=== PATIENT | male | born 1940 | race Hispanic/Latino ===

== ENCOUNTER 2019-01-29 14:03 | Emergency (ER) | payer MEDICARE, OTHER ==
[~2019-01-29] VITALS: Ht 170.2 cm; Wt 79.8 kg
[~2019-01-29 14:03] MED LIST: AMLODIPINE BESYL5 MG PO; AVODART0.5 MG PO; CALCIUM600 MG PO; DEXILANT60 MG PO; DIOVAN80 MG PO; FENOFIBRATE160 MG PO; FISH OIL 1,0001 EAC2 PO; NAPROXEN500 MG PO; SERTRALINE HCL100 MG PO
--- OUTSIDE RECORDS SUMMARY | 2019-01-29 14:05 | XMS REPORT | Summary of Care ---
Author Author [facility] Organization [facility] Address Unknown Phone Unavailable Encounter [facility] En[facility]tr_aliseven(FIN) [id number] Date(s): 05/15/17 - 05/15/17 [facility] [address] [place] [address]- Discharge Disposition: Home or Self Care Attending Physician: Frances Castellon DO Admitting Physician: Frances Castellon DO Vital Signs No data available for this section Problem List No data available for this section Allergies, Adverse Reactions, Alerts No data available for this section Medications No data available for this section Results No data available for this section Immunizations No data available for this section Procedures No data available for this section Social History No data available for this section Assessment and Plan No data available for this section
--- OUTSIDE RECORDS SUMMARY | 2019-01-29 14:05 | XMS REPORT | Summary of Care ---
Author Organization Unknown Address Unknown Phone Unavailable Encounter [facility]) [id number] Date(s): 10/16/14 - 10/16/14 [facility] Outpatient Imaging - [address] [address]- [place] Discharge Disposition: Home Physician Attending: Ronald Barnett MD Reason for Visit 338.0 - CENTRAL PAIN SY Problem List No data available for this section Allergies, Adverse Reactions, Alerts No data available for this section Medications No data available for this section Medications Administered During Your Visit No data available for this section Immunizations No data available for this section
--- OUTSIDE RECORDS SUMMARY | 2019-01-29 14:05 | XMS REPORT | Continuity of Care Document ---
Author Author [facility] Interface Address Unknown Phone Unavailable Problems Problem Status Onset Date Classification Date Reported Comments Source M79.1 Active 05/15/2017 [facility] MYALGIA Active [facility] PAIN IN RIGHT KNEE Active [facility] Medications Medication Details Route Status Patient Instructions Ordering Provider Order Date Source Allergies, Adverse Reactions, Alerts Substance Category Reaction Severity Reaction type Status Date Reported Comments Source Immunizations Immunization Date Given Site Status Last Updated Comments Source Results Order Name Results Value Reference Range Date Interpretation Comments Source Knee 3 Views Bilateral DX Knee 3 Views Bilateral DX BILATERAL KNEES, 3 VIEWS HISTORY: Patient reports bilateral knee pain for approximately 3 years; - M79.1 Myalgia; COMPARISON: Left knee MRI dated October 16, 2014 LEFT KNEE: Mild medial compartment degenerative joint space narrowing with mild subchondral sclerosis and cystic change. Mild degenerative spurring of the tibial spines and patella. No fracture, osseous malalignment, or aggressive osseous lesion. No joint effusion. RIGHT KNEE: Medial compartment joint space is grossly preserved but there is mild degenerative subchondral cystic change and sclerosis in the medial femoral condyle. Trace osteophytosis of the tibial spines and patella. Small quadriceps and patellar tendon enthesophytes of the patella. No fracture, osseous malalignment, or aggressive osseous lesion. No significant joint effusion. SL: [id number] 05/15/2017 - - Read by: Joseph Little MD Dictated Date/time: 05/16/17 09:44 Electronically Signed by: Joseph Little MD 05/16/17 09:49 FINAL REPORT [facility] Vital Signs Vital Sign Value Date Comments Source Encounters Location Location Details Encounter Type Encounter Number Reason For Visit Attending Provider ADM Date DC Date Status Source [facility] [id number] Ronald Barnett 10/16/2014 10/17/2014 [facility] [id number] Frances Odenenberg 05/15/2017 05/16/2017 [facility] Procedures Procedure Code Date Perfomer Comments Source
[2019-01-29] MEDS ORDERED: TRAMADOL HCL 50 MG TAB PO ONE (14:30)
--- NOTE | 2019-01-29 15:24 | Diagnostic Imaging Report ---
History: Comparison studies:None Technique: Axial images were obtained from the skull base to the vertex. Coronal and sagittal images reconstructed from the axial data. Intravenous contrast: None Dose modulation, iterative reconstruction, and/or weight based adjustment of the mA/kV was utilized to reduce the radiation dose to as low as reasonably achievable. Findings: Scalp/skull: No abnormalities. Extra-axial spaces: No masses. No fluid collections. Brain sulci: Age-appropriate. Ventricles: Age-appropriate. No hydrocephalus. Parenchyma: No abnormal densities. No masses, hemorrhage, acute or chronic cortical vascular insults. Sellar/suprasellar region: No abnormalities. Craniocervical junction: Patent foramen magnum. No Chiari one malformation. Incidental findings: Atherosclerotic calcifications in the carotid siphons . Impression: No acute abnormality Signed by: DR Yoav Bernal M.D. on 01/29/2019 3:21 PM
== END 2019-01-29 16:10 | disposition home or self-care (01) ==
LOC: ER 14:03
DX: S01.01XA Laceration without foreign body of scalp, initial encounter (principal); W22.8XXA Striking against or struck by other objects, initial encounter; Y92.008 Other place in unspecified non-institutional (private) residence as the place of occurrence of the external cause; I10 Essential (primary) hypertension; K21.9 Gastro-esophageal reflux disease without esophagitis
CPT/HCPCS: 70450; 99284

== ENCOUNTER 2020-06-12 07:46 | Emergency (ER) | payer MEDICARE, OTHER ==
[~2020-06-12] VITALS: Ht 165.1 cm; Wt 68.0 kg
[2020-06-12] MEDS ORDERED: ACETAMINOPHEN 325 MG TAB PO ONE (08:00)
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
--- NOTE | 2020-06-12 08:39 | Diagnostic Imaging Report ---
History:Headaches Comparison studies: Head CT on 01/29/2019 Technique: Axial images were obtained from the skull base to the vertex. Coronal and sagittal images reconstructed from the axial data. Dose modulation, iterative reconstruction, and/or weight based adjustment of the mA/kV was utilized to reduce the radiation dose to as low as reasonably achievable. Intravenous contrast: None Findings: Scalp/skull: No abnormalities. Extra-axial spaces: No masses. No fluid collections. Brain sulci: Appropriate for age Ventricles: Normal in size and configuration. No hydrocephalus. Parenchyma: Subtle hypodensities in the supratentorial white matter are small vessel ischemic changes. No masses, hemorrhage, acute or chronic cortical vascular insults. Sellar/suprasellar region: No abnormalities. Craniocervical junction: Patent foramen magnum. No Chiari one malformation. Incidental findings: Subtle calcifications in the carotid siphons . Impression: 1. No abnormalities. 2. No changes when compared to the head CT on 01/29/2019 Signed by: Dr. Jose Funk M.D. on 06/12/2020 8:36 AM
== END 2020-06-12 09:14 | disposition home or self-care (01) ==
LOC: ER 08:02
DX: S00.83XA Contusion of other part of head, initial encounter (principal); R51 Headache; W18.09XA Striking against other object with subsequent fall, initial encounter; Y93.55 Activity, bike riding; Y92.488 Other paved roadways as the place of occurrence of the external cause; I10 Essential (primary) hypertension; E78.5 Hyperlipidemia, unspecified; K21.9 Gastro-esophageal reflux disease without esophagitis
CPT/HCPCS: 70450; 99283

== ENCOUNTER 2022-07-22 05:36 | Emergency (ER) | payer MEDICARE, OTHER ==
[~2022-07-22] VITALS: Ht 165.1 cm; Wt 68.0 kg
[2022-07-22] MEDS ORDERED: KETOROLAC TROMETHAMINE 60 MG/2 ML VIAL IM ONE (06:15)
[2022-07-22] MEDS ORDERED: VALIUM2 MG PO (06:18)
[2022-07-22] MEDS ORDERED: KETOROLAC TROMETHAMINE 30 MG/ML VIAL ONE (06:28)
== END 2022-07-22 06:30 | disposition home or self-care (01) ==
LOC: ER 05:41
DX: M54.2 Cervicalgia (principal); M62.838 Other muscle spasm; I10 Essential (primary) hypertension; E78.5 Hyperlipidemia, unspecified; K21.9 Gastro-esophageal reflux disease without esophagitis
CPT/HCPCS: 99282; J1885

== ENCOUNTER → 2022-11-19 | Day surgery (SDC) | payer MEDICARE, OTHER ==
[2022-11-16 08:26] LABS: BASOPHILS # (AUTO) 0.1 (0.0-0.1); BASOPHILS % 0.9 % (0.0-1.0); EOSINOPHILS # (AUTO) 0.3 (0.0-0.4); HEMATOCRIT 42.8 % (38.2-49.6); HEMOGLOBIN 14.5 g/dL (14.0-18.0); LYMPHOCYTES # (AUTO) 1.9 (1.0-3.2); LYMPHOCYTES % 35.2 % (18.0-39.1); MEAN CORPUSCULAR HEMOGLOBIN 30.9 pg (28-32); MEAN CORPUSCULAR HGB CONC 33.9 g/dL (31-35); MEAN CORPUSCULAR VOLUME 91.3 fL (81-99); MONOCYTES # (AUTO) 0.7 (0.2-0.8); MONOCYTES % 12.9 % (4.4-11.3); NEUTROPHILS # (AUTO) 2.5 (2.1-6.9); NEUTROPHILS % 44.5 % (38.7-80.0); PLATELET COUNT 193 x10e3/uL (140-360); RED BLOOD COUNT 4.69 x10e6/uL (4.3-5.7); RED CELL DISTRIBUTION WIDTH 13.4 % (11.7-14.4)
[2022-11-16 08:40] LABS: INR 0.92; PROTHROMBIN TIME 12.6 seconds (11.9-14.5)
[2022-11-16 08:41] LABS: PARTIAL THROMBOPLASTIN TIME 32.6 seconds (23.8-35.5)
[2022-11-16 08:48] LABS: ALBUMIN 3.7 g/dL (3.5-5.0); ALBUMIN/GLOBULIN RATIO 1.1 (0.8-2.0); ANION GAP 12.8 mmol/L (8-16); CALCIUM 9.4 mg/dL (8.4-10.2); CHOL/HDL RATIO 4.7 (3.9-4.7); CREATININE, SERUM 0.82 mg/dL (0.72-1.25); POTASSIUM 3.8 mmol/L (3.5-5.1)
[2022-11-19] VITALS (13 sets, daily range): BP systolic 147–175; BP diastolic 61–72
[~2022-11-19] MED LIST changes: +ASPIRIN 325 MG TAB ONE; +FENTANYL CITRATE/PF 100MCG/2 ML INJ ONE; +HEPARIN SOD (PORCINE) 1000 UNIT/ML 30ML ONE; +HEPARIN SOD/SOD CHLORIDE 2,000 ML ONE; +IOPAMIDOL 370 MG/ML 100 ML INFUS..BTL INJ ONE; +LIDOCAINE HCL 2% LOCAL 20 ML VIAL ONE; +MIDAZOLAM HCL 2 MG/2 ML VIAL ONE; +NITROGLYCERIN/D5W 200 MCG/ML 250 ML ONE; +SODIUM CHLORIDE 0.9% 1000ML 1,000 ML ONE; +VALIUM2 MG PO; +VERAPAMIL HCL 2.5 MG/ML 2 ML VIAL ONE
== END | disposition home or self-care (01) ==
LOC: CATH LAB 06:32
PROVIDERS: ATTEND Internal Medicine Cardiovascular Disease
DX: I25.118 Atherosclerotic heart disease of native coronary artery with other forms of angina pectoris (principal); R94.31 Abnormal electrocardiogram [ECG] [EKG]; R00.2 Palpitations; I10 Essential (primary) hypertension; E78.5 Hyperlipidemia, unspecified; I87.2 Venous insufficiency (chronic) (peripheral); I47.20 Ventricular tachycardia, unspecified; Z01.810 Encounter for preprocedural cardiovascular examination; Z01.812 Encounter for preprocedural laboratory examination; Z79.899 Other long term (current) drug therapy
CPT/HCPCS: 36415; 80053; 80061; 83036; 85025; 85610; 85730; 93005; 93458; C1769; C1887; J1644; J2001; J2250; J3010; J7030; Q9967; 99152; 99153

== ENCOUNTER 2023-01-21 07:15 | Observation (INO) | payer MEDICARE, OTHER ==
[2023-01-18 08:57] LABS: BASOPHILS % 0.7 % (0.0-1.0); EOSINOPHILS # (AUTO) 0.3 (0.0-0.4); EOSINOPHILS % 5.5 % (0.0-6.0); HEMATOCRIT 41.5 % (38.2-49.6); HEMOGLOBIN 14.3 g/dL (14.0-18.0); LYMPHOCYTES # (AUTO) 2.2 (1.0-3.2); LYMPHOCYTES % 39.3 % (18.0-39.1); MEAN CORPUSCULAR HEMOGLOBIN 31.2 pg (28-32); MEAN CORPUSCULAR HGB CONC 34.5 g/dL (31-35); MEAN CORPUSCULAR VOLUME 90.4 fL (81-99); MONOCYTES # (AUTO) 0.6 (0.2-0.8); MONOCYTES % 10.8 % (4.4-11.3); NEUTROPHILS # (AUTO) 2.4 (2.1-6.9); NEUTROPHILS % 43.2 % (38.7-80.0); PLATELET COUNT 191 x10e3/uL (140-360); RED BLOOD COUNT 4.59 x10e6/uL (4.3-5.7); RED CELL DISTRIBUTION WIDTH 13.2 % (11.7-14.4)
[~2023-01-21] VITALS: Ht 170.2 cm; Wt 77.1 kg
[~2023-01-21 07:15] MED LIST changes: -ASPIRIN 325 MG TAB ONE; +ATORVASTATIN CA20 MG PO; +CEFAZOLIN SODIUM 2 GM ONE; +CELECOXIB 200 MG CAP ONE; +DEXAMETHASONE SOD PHOS 10 MG/1 ML VIAL ONE; -FENTANYL CITRATE/PF 100MCG/2 ML INJ ONE; +GABAPENTIN 300 MG CAP ONE; -HEPARIN SOD (PORCINE) 1000 UNIT/ML 30ML ONE; -HEPARIN SOD/SOD CHLORIDE 2,000 ML ONE; +HYDROCHLOROTHIA25 MG PO; -IOPAMIDOL 370 MG/ML 100 ML INFUS..BTL INJ ONE; +LACTATED RINGER'S 1,000 ML ONE; -LIDOCAINE HCL 2% LOCAL 20 ML VIAL ONE; +LISINOPRIL10 MG PO; -MIDAZOLAM HCL 2 MG/2 ML VIAL ONE; -NITROGLYCERIN/D5W 200 MCG/ML 250 ML ONE; +PROTONIX20 MG PO; +SODIUM CHLORIDE 0.9% 100 ML ONE; -SODIUM CHLORIDE 0.9% 1000ML 1,000 ML ONE; +SODIUM CHLORIDE 0.9% 500ML 500 ML ONE; +TRANEXAMIC ACID 20 ML ONE; -VERAPAMIL HCL 2.5 MG/ML 2 ML VIAL ONE; +VITAL JOINT; +VITAMIN D31 GM; +Vancomycin IV 1,000 MG ONE
[2023-01-21] MEDS ORDERED: ROPIVACAINE 246.25 MG, EPINEPHRINE HCL 1:1000 1ML 0.5 MG, CLONIDINE HCL 0.08 MG, KETORO... INJ ONE ×5 (08:00)
[2023-01-21] MEDS ORDERED: DOCUSATE SODIUM 100 MG CAP PO PRN (08:30)
[2023-01-21] MEDS ORDERED: ACETAMINOPHEN 650 MG SUPP PR PRN (08:30)
[2023-01-21] MEDS ORDERED: ONDANSETRON HCL INJ 2MG/ML 2ML 2 MG/ML VIAL IV PRN (08:30)
[2023-01-21] MEDS ORDERED: HYDROCODONE/APAP 7.5MG-325MG 1 EA TAB PO PRN (08:30)
[2023-01-21] MEDS ORDERED: HYDROCODONE/APAP 5MG-325MG TAB PO PRN (08:30)
[2023-01-21] MEDS ORDERED: ZOLPIDEM TARTRATE 5 MG TAB PO PRN (08:30)
[2023-01-21] MEDS ORDERED: DIPHENHYDRAMINE HCL INJ 50 MG/ML VIAL IV PRN (08:30)
[2023-01-21 09:50] VITALS: BP 152/72
[2023-01-21 10:00] VITALS: BP 152/72
[2023-01-21] MEDS ORDERED: SODIUM CHLORIDE 0.9% 1000ML 1,000 ML IV SCH (11:00)
[2023-01-21] MEDS ORDERED: ASPIRIN 325 MG TAB PO SCH (11:00)
[2023-01-21 12:09] VITALS: BP_SYST 117; BP_SYST 148; BP_DIAS 61; BP_DIAS 76
[2023-01-21] MEDS ORDERED: FENTANYL CITRATE/PF 100MCG/2 ML INJ ONE (12:13)
[2023-01-21] MEDS ORDERED: LIDOCAINE HCL 2% LOCAL INJ 5 ML SDV VIAL INJ ONE (12:45)
[2023-01-21] MEDS ORDERED: POVIDONE IODINE 0.05% 0.05 % ML PO ONE (12:45)
[2023-01-21] MEDS ORDERED: ONDANSETRON HCL INJ 2MG/ML 2ML 2 MG/ML VIAL ONE (12:45)
[2023-01-21] MEDS ORDERED: PROPOFOL IV EMULSION 10 MG/ML 20 ML VIAL ONE (12:45)
[2023-01-21] MEDS ORDERED: GLYCOPYRROLATE INJ 0.2 MG/ML VIAL ONE (12:45)
[2023-01-21] MEDS ORDERED: VITAMIN D31 GM PO (13:31)
[2023-01-21] MEDS ORDERED: CELECOXIB 200 MG CAP PO SCH (17:00)
[2023-01-22] MEDS ORDERED: ACETAMINOPHEN 1000 MG/100 ML IV PRN (08:30)
== END 2023-01-21 15:14 | disposition home or self-care (01) ==
LOC: OR 07:15 → PACU V 08:25 → MED/SURG 09:50
PROVIDERS: ADMIT Specialist; ATTEND Specialist
DX: M17.12 Unilateral primary osteoarthritis, left knee (principal); I10 Essential (primary) hypertension
CPT/HCPCS: 0223U; 27447; 36415; 71046; 73560; 85025; 86850; 86900; 86920; 94799; 97110; 97116; 97161; C1713 ×2; C1776 ×3; G0378; J0171; J1100; J1885; J2001; J2405; J2704; J2795; J3010; J3370; J7030; J7040; J7050; J7121

== ENCOUNTER 2023-03-18 07:31 | Outpatient (RCR) | payer MEDICARE, OTHER ==
[~2023-03-18 07:31] MED LIST changes: -CEFAZOLIN SODIUM 2 GM ONE; -CELECOXIB 200 MG CAP ONE; -DEXAMETHASONE SOD PHOS 10 MG/1 ML VIAL ONE; -GABAPENTIN 300 MG CAP ONE; -LACTATED RINGER'S 1,000 ML ONE; -SODIUM CHLORIDE 0.9% 100 ML ONE; -SODIUM CHLORIDE 0.9% 500ML 500 ML ONE; -TRANEXAMIC ACID 20 ML ONE; +VITAMIN D31 GM PO; -Vancomycin IV 1,000 MG ONE
== END 2023-03-22 ==
LOC: PT 07:31
PROVIDERS: ATTEND Specialist
DX: Z47.1 Aftercare following joint replacement surgery (principal); Z96.652 Presence of left artificial knee joint

== ENCOUNTER → 2023-04-02 | Outpatient (CLI) | payer MEDICARE, OTHER | LOC: RAD 12:49 | PROVIDERS: ATTEND Internal Medicine | DX: M54.50 Low back pain, unspecified (principal) | CPT/HCPCS: 72110 ==

== ENCOUNTER 2024-08-25 06:38 | Emergency (ER) | payer MEDICARE, OTHER ==
[~2024-08-25] VITALS: Ht 170.2 cm; Wt 77.1 kg
[~2024-08-25 06:38] MED LIST changes: +METHOCARBAMOL500 MG PO
[2024-08-25 06:45] VITALS: PULSE 68; RESP 20; TEMP 98.9; O2SAT 96
== END 2024-08-25 07:25 | disposition home or self-care (01) ==
LOC: ER 06:42
DX: M54.2 Cervicalgia (principal); M62.838 Other muscle spasm; I10 Essential (primary) hypertension; E78.5 Hyperlipidemia, unspecified; K21.9 Gastro-esophageal reflux disease without esophagitis
CPT/HCPCS: 99282